=== PATIENT | female | born 1980 | race Caucasian/White ===

== ENCOUNTER 2024-09-26 11:45 | Outpatient (CLI) | payer OTHER, SELFPAY ==
--- NOTE | 2024-09-26 11:45 | USCV_ITS ---
SULEMAN NAGY Age: 44 Gender: F : 1980 Exam Date: 09/26/2024 11:56 Ordering Phys: Gaurav Srivastava MD (Andy) ([email or web address]) Technologist: [employer] Exam Location: [facility] – [place] Indication: pain HISTORY: Lower extremity pain. DVT. PROCEDURES: Venous duplex imaging was performed in only the left lower extremity. The following venous structures were evaluated: common femoral vein, profunda vein, proximal portion of the greater saphenous vein, superficial femoral vein, and the popliteal vein. In addition, the posterior tibial and peroneal trunk were evaluated. FINDINGS: No evidence of DVT seen in any vessel visualized at this time. CONCLUSIONS No evidence of left lower extremity DVT. Sadiq Sen MD (Electronically Signed) Final Date: 26 September 2024 15:25 S
== END 2024-09-26 11:49 | disposition home or self-care (01) ==
PROVIDERS: Visit Provider Thoracic Surgery (Cardiothoracic Vascular Surgery)
DX: I82.402 Acute embolism and thrombosis of unspecified deep veins of left lower extremity (principal)
CPT/HCPCS: 93971